=== PATIENT | female | born 1960 | race American Indian/Alaskan Native ===

== ENCOUNTER 2017-05-02 15:40 | Emergency (ER) | payer OTHER ==
[2017-05-02 15:42] VITALS: BP 115/64; PULSE 78; RESP 16; TEMP 98.8; O2SAT 98
--- NOTE | 2017-05-02 16:13 | ED PDOC ---
HPI: Eye Injury/Pain Time Seen by Provider: 05/02/17 15:53 Chief Complaint (Nursing): Eye Problem Chief Complaint (Provider): Right eye irritation History Per: Patient History/Exam Limitations: no limitations Onset/Duration Of Symptoms: Days (2) Additional Complaint(s): Patient is a 56 y/o female with no significant past medical history brought to the emergency department by EMS for swelling and redness to her right upper eyelid since last night. Reports that she was scratching the top of her right upper eyelid last night because it felt itchy. Then, after waking up this morning she found that the eyelid was swollen and red. Denies pain, discomfort, scleral redness, fever, shortness of breath, facial swelling, changes in vision , discharge, foreign body sensation, use of contact lens, injuries, or other complaints. Patient is also requesting refill for her Ventolin pump. PCP: none provided. Past Medical History Reviewed: Historical Data, Nursing Documentation, Vital Signs Vital Signs: Last Vital Signs Temp 98.8 F 05/02/17 15:40 Pulse 78 05/02/17 15:40 Resp 16 05/02/17 15:40 BP 115/64 05/02/17 15:40 Pulse Ox 98 05/02/17 15:40 - Medical History PMH: Anxiety, Asthma - Family History Family History: States: Unknown Family Hx - Immunization History Hx Tetanus Toxoid Vaccination: No Hx Influenza Vaccination: No Hx Pneumococcal Vaccination: No - Home Medications Home Medications: Ambulatory Orders Medication Instructions Recorded Albuterol Sulfate [Albuterol Hfa] 0.09 mg IH QID PRN #30 04/03/14 Methylprednisolone [Medrol Dose 4 mg PO DAILY #21 mg 04/03/14 Pack (21 tabs)] Albuterol Sulfate [Albuterol 3 ml IH Q6H PRN #30 lion 05/07/14 Sulfate 2.5mg/3 ml 0.083%] Alprazolam [Xanax] 0.25 mg PO DAILY PRN #5 tab 05/07/14 Prednisone 50 mg PO DAILY #4 tab 05/07/14 predniSONE 50 mg PO DAILY #4 tab 05/31/14 Nabumetone [Relafen] 500 mg PO BID #20 tab 09/20/14 Albuterol 0.083% [Albuterol 0.083% 2.5 mg IH Q6H #50 neb 07/20/15 Inhal Lion (2.5 mg/3 ml) UD] Naproxen [Naprosyn] 500 mg PO BID PRN #20 tablet 07/20/15 Nabumetone [Relafen] 500 mg PO BID #20 tab 08/08/15 traMADol [Ultram] 50 mg PO TID PRN #15 tab 08/08/15 Acetaminophen [Tylenol Extra 1,000 mg PO TID #20 tablet 11/30/15 Strength] Ibuprofen [Motrin] 600 mg PO TID PRN #30 tab 11/30/15 Albuterol 0.083% [Albuterol 3 ml IH Q4 #100 neb 05/02/17 Sulfate 3 Ml] Albuterol HFA [Ventolin HFA 90 2 puff IH [id number] #1 puff 05/02/17 mcg/actuation (8 g)] DiphenhydrAMINE [Benadryl] 25 mg PO TID #20 cap 05/02/17 - Allergies Allergies/Adverse Reactions: Allergies Allergy/AdvReac Type Severity Reaction Status Date / Time No Known Allergies Allergy Verified 08/08/15 14:44 Review of Systems ROS Statement: Except As Marked, All Systems Reviewed And Found Negative Constitutional: Negative for: Fever Eyes: Positive for: Eyelid Inflammation (right eyelid swelling and redness). Negative for: Pain, Vision Change, Conjunctivae Inflammation, Redness (scleral) , Other (discharge, foreign body sensation, trauma) ENT: Negative for: Other (facial swelling) Respiratory: Negative for: Shortness of Breath Physical Exam - Reviewed Nursing Documentation Reviewed: Yes Vital Signs Reviewed: Yes - Physical Exam Comments: GENERAL APPEARANCE: Patient is awake, alert, oriented x 3, in no acute distress. SKIN: Warm, dry; (-) cyanosis. HEENT: (-) facial swelling and erythema, (-) facial blisters. LIDS & LASHES: Edema and erythema to right upper eyelid PUPILS: Pupils equal and reactive. EOM's: Intact. LID EVERSION: (-) foreign body. CONJUNCTIVAE: (-) injection. CORNEA: No embedded foreign body noted (-) infiltrate. ANTERIOR CHAMBER: (-) foreign body, (-) tear in iris, (-) hyphema. CHEST AND RESPIRATORY: (-) accessory muscle use. Lungs: (-) rales, (-) rhonchi, (-) wheezes, (-) rub; breath sounds equal bilaterally. HEART AND CARDIOVASCULAR: (-) irregularity; (-) murmur, (-) gallop, (-) rub. - ECG O2 Sat by Pulse Oximetry: 98 (RA) Pulse Ox Interpretation: Normal Medical Decision Making Medical Decision Makin:00 Patient medicated with Benadryl by mouth and given prescription refill for her Ventolin and albuterol nebulizer. Patient is stable for discharge and diagnosed with having an allergic reaction, which was discussed with patient. Advised to follow up with primary care physician in 1-2 days without fail. Take Rx as directed. Return to the emergency room at any time for any new or worsening symptoms. Patient states she fully agrees with and understands discharge instructions. States that she agrees with the plan and disposition. Verbalized and repeated discharge instructions and plan. I have given the patient opportunity to ask any additional questions. ~ Scribe Attestation: Documented by Barbara Howell, acting as a scribe for ANGEL Bruner. Provider Scribe Attestation: All medical record entries made by the Scribe were at my direction and personally dictated by me. I have reviewed the chart and agree that the record accurately reflects my personal performance of the history, physical exam, medical decision making, and the department course for this patient. I have also personally directed, reviewed, and agree with the discharge instructions and disposition. Disposition - Clinical Impression Clinical Impression: Allergic reaction, Asthma Counseled Patient/Family Regarding: Diagnosis, Rx Given - Disposition Disposition: Routine/Home Disposition Time: 17:00 Condition: STABLE Additional Instructions: Thank you for letting us take care of you today. You were treated for allergic reaction, asthma. The emergency medical care you received today was directed at your acute symptoms. If you were prescribed any medication, please fill it and take as directed. It may take several days for your symptoms to resolve. Return to the Emergency Department if your symptoms worsen, do not improve, or if you have any other problems. Please contact your doctor in 2 days for re-evaluation and follow up. Bring any paperwork you were given at discharge with you along with any medications you are taking to your follow up visit. Our treatment cannot replace ongoing medical care by a primary care provider (PCP) outside of the emergency department. Thank you for allowing the [facility] team to be part of your care today. Prescriptions: Albuterol HFA [Ventolin HFA 90 mcg/actuation (8 g)] 2 puff IH [id number] #1 puff Albuterol 0.083% [Albuterol Sulfate 3 Ml] 3 ml IH Q4 #100 neb DiphenhydrAMINE [Benadryl] 25 mg PO TID #20 cap Instructions: Asthma (ED), General Allergic Reaction (ED) Forms: [employer] [employer] (Egyptian) Print Language: TURKMEN - PA / LIMO DRIVER / Resident Statement /DO has reviewed & agrees with the documentation as recorded.
== END 2017-05-02 16:54 | disposition home or self-care (01) ==
LOC: H.ER 15:40
DX: T78.40XA Allergy, unspecified, initial encounter (principal); J45.909 Unspecified asthma, uncomplicated; Z86.59 Personal history of other mental and behavioral disorders

== ENCOUNTER 2017-08-21 14:21 | Emergency (ER) | payer OTHER ==
[2017-08-21 14:28] VITALS: TEMP 98.1
[2017-08-21] MEDS ORDERED: Albuterol-Ipratrop 3 mg / 0.5 (3 ml) UD IH STA (14:56)
[2017-08-21] MEDS ORDERED: Albuterol-Ipratrop 3 mg / 0.5 (3 ml) UD INH STA (14:56)
[2017-08-21 15:09] LABS: BASO # 0.1 K/uL (0.0-0.2); BASO % 1.2 % (0.0-2.0); EOS # 0.1 K/uL (0.0-0.7); EOS % 2.3 % (0.0-4.0); HEMOGLOBIN 13.7 g/dL (12.0-16.0); LYMPH # 1.6 K/uL (1.0-4.3); MEAN CELL VOLUME 90.4 fl (81.0-99.0); MEAN CORPUSCULAR HEMOGLOBIN 30.8 pg (27.0-31.0); MEAN CORPUSCULAR HGB CONC 34.1 g/dL (33.0-37.0); MEAN PLATELET VOLUME 7.2 fl (7.2-11.7); MONO # 0.7 K/uL (0.0-0.8); MONO % 12.3 % (0.0-10.0); NEUT # 3.2 K/uL (1.8-7.0); NEUT % 56.2 % (50.0-75.0); NRBC % 0.1 % (0.0-0.0); RBC 4.45 Mil/uL (3.80-5.20); RED CELL DISTRIBUTION WIDTH 14.4 % (11.5-14.5); WHITE BLOOD COUNT 5.8 K/uL (4.8-10.8)
[2017-08-21] MEDS ORDERED: Albuterol-Ipratrop 3 mg / 0.5 (3 ml) UD ONE (15:09)
--- NOTE | 2017-08-21 15:09 | ED PDOC ---
HPI: SOB/CHF/COPD Time Seen by Provider: 08/21/17 14:35 Chief Complaint (Nursing): Shortness Of Breath Chief Complaint (Provider): shortness of breath History Per: Patient History/Exam Limitations: no limitations Onset/Duration Of Symptoms: Hrs (today) Current Symptoms Are (Timing): Still Present Current Respiratory Medications: Albuterol Associated Symptoms: Other (nasal congestion). denies: Fever, Chills, Chest Pain, Leg/Calf Pain, Dizziness, Tingling In Hands Or Face Additional Complaint(s): Tanika Morgan is a 56 year old female, with a past medical history of asthma, who presents to the emergency department via EMS complaining of shortness of breath onset today. Patient is also complaining of nasal congestion, and states her asthma might have been exacerbated by seasonal allergies. Patient reports a chronic bilateral knee pain and swelling that she has had for many months, the swelling is more so on the right than the left knee. Patient takes Motrin for the pain with relief but states she ran out. She denies any fever, chills, chest pain, vomit, diarrhea, abdominal pain, calf pain, numbness, weakness, tingling, headache or dizziness. No further medical complaints. PMD: None provided. Past Medical History Reviewed: Historical Data, Nursing Documentation, Vital Signs Vital Signs: Last Vital Signs Temp 98.1 F 08/21/17 14:24 Pulse 83 08/21/17 14:24 Resp 16 08/21/17 14:24 BP 111/52 L 08/21/17 14:24 Pulse Ox 100 08/21/17 15:22 - Medical History PMH: Anxiety, Asthma - Surgical History Surgical History: No Surg Hx - Family History Family History: States: Unknown Family Hx - Social History Current smoker - smoking cessation education provided: Yes (light smoker <10 cigarettes daily) Alcohol: Social Drugs: Cannabis - Immunization History Hx Tetanus Toxoid Vaccination: No Hx Influenza Vaccination: No Hx Pneumococcal Vaccination: No - Home Medications Home Medications: Ambulatory Orders Medication Instructions Recorded Albuterol Sulfate [Albuterol Hfa] 0.09 mg IH QID PRN #30 04/03/14 Methylprednisolone [Medrol Dose 4 mg PO DAILY #21 mg 04/03/14 Pack (21 tabs)] Albuterol Sulfate [Albuterol 3 ml IH Q6H PRN #30 gaby 05/07/14 Sulfate 2.5mg/3 ml 0.083%] Alprazolam [Xanax] 0.25 mg PO DAILY PRN #5 tab 05/07/14 Prednisone 50 mg PO DAILY #4 tab 05/07/14 predniSONE 50 mg PO DAILY #4 tab 05/31/14 Nabumetone [Relafen] 500 mg PO BID #20 tab 09/20/14 Albuterol 0.083% [Albuterol 0.083% 2.5 mg IH Q6H #50 neb 07/20/15 Inhal Gaby (2.5 mg/3 ml) UD] Naproxen [Naprosyn] 500 mg PO BID PRN #20 tablet 07/20/15 Nabumetone [Relafen] 500 mg PO BID #20 tab 08/08/15 traMADol [Ultram] 50 mg PO TID PRN #15 tab 08/08/15 Acetaminophen [Tylenol Extra 1,000 mg PO TID #20 tablet 11/30/15 Strength] Ibuprofen [Motrin] 600 mg PO TID PRN #30 tab 11/30/15 Albuterol 0.083% [Albuterol 3 ml IH Q4 #100 neb 05/02/17 Sulfate 3 Ml] Albuterol HFA [Ventolin HFA 90 2 puff IH [id number] #1 puff 05/02/17 mcg/actuation (8 g)] DiphenhydrAMINE [Benadryl] 25 mg PO TID #20 cap 05/02/17 Albuterol Sulfate [Proair Hfa] 0.09 mg IH Q6H PRN #2 inh 08/21/17 Ibuprofen [Motrin] 600 mg PO TID 7 Days tab 08/21/17 - Allergies Allergies/Adverse Reactions: Allergies Allergy/AdvReac Type Severity Reaction Status Date / Time No Known Allergies Allergy Verified 08/08/15 14:44 Review of Systems ROS Statement: Except As Marked, All Systems Reviewed And Found Negative Constitutional: Negative for: Fever, Chills ENT: Positive for: Nose Congestion Cardiovascular: Negative for: Chest Pain Respiratory: Positive for: Shortness of Breath Gastrointestinal: Negative for: Vomiting, Abdominal Pain, Diarrhea Musculoskeletal: Positive for: Leg Pain (chronic b/l knee) Neurological: Negative for: Weakness, Numbness (tingling), Headache, Dizziness Physical Exam - Reviewed Nursing Documentation Reviewed: Yes Vital Signs Reviewed: Yes - Physical Exam Appears: Positive for: Non-toxic Head Exam: Positive for: ATRAUMATIC, NORMOCEPHALIC Skin: Positive for: Normal Color, Warm, Dry Eye Exam: Positive for: Normal appearance, EOMI, PERRL ENT: Positive for: Nasal Congestion Neck: Positive for: Normal, Painless ROM, Supple Cardiovascular/Chest: Positive for: Regular Rate, Rhythm. Negative for: Murmur Respiratory: Positive for: Decreased Breath Sounds, Wheezing (mild expiratory) Pulses-Dorsalis Pedis (L): 2+ Pulses-Dorsalis Pedis (R): 2+ Gastrointestinal/Abdominal: Positive for: Normal Exam, Soft. Negative for: Tenderness Back: Positive for: Normal Inspection. Negative for: L CVA Tenderness, R CVA Tenderness, Vertebral Tenderness Extremity: Positive for: Normal ROM (full ROM at lower extremities), Swelling (b /l knee mild swelling. No erythema). Negative for: Tenderness, Pedal Edema, Calf Tenderness, Deformity Neurologic/Psych: Positive for: Alert, Oriented. Negative for: Motor/Sensory Deficits - Laboratory Results Result Diagrams: 08/21/17 15:00 08/21/17 15:00 Interpretation Of Abn Labs: no acute - ECG ECG: Positive for: Interpreted By Me, Viewed By Me ECG Rhythm: Positive for: Normal QRS, Normal ST Segment, Sinus Rhythm O2 Sat by Pulse Oximetry: 100 (RA) Pulse Ox Interpretation: Normal - Radiology X-Ray: Interpreted by Me, Viewed By Nj X-Ray Interpretation: No Acute Disease - Progress ED Course And Treament: 1634: Stable. AAOx3. Pain free. Breathing better. Fu with pcp. Medical Decision Making Medical Decision Making: Initial Impression: Asthma exacerbation, chronic knee pain Initial Plan: --EKG --B-Type Natriuretic Peptide --BMP --Troponin I --CBC w/ differential --Chest portable [RAD] --Duoneb 3 ml INH --SOLU-medrol 125 mg IVP --Toradol 15 mg IVP --Peak flow pre/post Tx --Reevaluation ----- Scribe Attestation: Documented by Sridhar Covarrubias, acting as a scribe for Maykel Ponce MD. Provider Scribe Attestation: All medical record entries made by the Scribe were at my direction and personally dictated by me. I have reviewed the chart and agree that the record accurately reflects my personal performance of the history, physical exam, medical decision making, and the department course for this patient. I have also personally directed, reviewed, and agree with the discharge instructions and disposition. Disposition - Clinical Impression Clinical Impression: Asthma - Patient ED Disposition Is Patient to be Admitted: No Counseled Patient/Family Regarding: Studies Performed, Diagnosis, Need For Followup, Rx Given - Disposition Referrals: [facility] [Outside] - 08/22/17 Disposition: Routine/Home Disposition Time: 16:35 Condition: STABLE Additional Instructions: Return if not better in 3 days. Prescriptions: Albuterol Sulfate [Proair Hfa] 0.09 mg IH Q6H PRN #2 inh PRN Reason: Wheezing Ibuprofen [Motrin] 600 mg PO TID 7 Days tab Instructions: Asthma in Adults
[2017-08-21 15:22] LABS: BLOOD UREA NITROGEN 17 mg/dl (7-17); CALCIUM 8.7 mg/dL (8.4-10.2); GFR AFRICAN-AMERICAN > 60; GFR NON-AFRICAN AMERICAN 58
[2017-08-21 15:34] LABS: B-TYPE NATRIURETIC PEPTIDE 37.1 pg/ml (0-900)
[2017-08-21 16:42] VITALS: BP 112/65; PULSE 71; RESP 19; O2SAT 99
--- NOTE | 2017-08-21 16:54 | RAD ---
HISTORY: Dyspnea. COMPARISON: 05/07/2014. FINDINGS: LUNGS: No active pulmonary disease. PLEURA: No significant pleural effusion identified, no pneumothorax apparent. CARDIOVASCULAR: No radiographic findings to suggest acute or significant cardiovascular disease. OSSEOUS STRUCTURES: No significant abnormalities. VISUALIZED UPPER ABDOMEN: Normal. OTHER FINDINGS: None. IMPRESSION: No active disease. No significant interval change compared to the prior examination(s). Concordant results with the preliminary interpretation rendered by the emergency department physician procedure.
--- NOTE | 2017-08-21 18:03 | CARD ---
APPROVED REPORT EKG Measurement Heart [id number] <Conclusion> Sinus bradycardia Anteroseptal infarct, age undetermined Abnormal ECG
== END 2017-08-21 16:45 | disposition home or self-care (01) ==
LOC: H.ER 14:21
DX: J45.909 Unspecified asthma, uncomplicated (principal); F17.210 Nicotine dependence, cigarettes, uncomplicated; M25.562 Pain in left knee; M25.561 Pain in right knee; G89.29 Other chronic pain; J44.9 Chronic obstructive pulmonary disease, unspecified
CPT/HCPCS: 71045; 80048; 81025; 83880; 84484; 85025; 93005; 96374; 96375; 99285; J1885; J2930

== ENCOUNTER 2018-04-10 11:39 | Emergency (ER) | payer OTHER ==
[2018-04-10] MEDS ORDERED: Albuterol-Ipratrop 3 mg / 0.5 (3 ml) UD ONE (14:09)
[2018-04-10] MEDS ORDERED: Albuterol-Ipratrop 3 mg / 0.5 (3 ml) UD INH STA (14:10)
--- NOTE | 2018-04-10 15:14 | RAD ---
Date of service: 04/10/2018 PROCEDURE: Right Knee Radiographs. HISTORY: acute R knee pain and swelling X 2 days COMPARISON: 07/20/2015 right knee radiographs FINDINGS: BONES: No acute fracture. Proliferative hypertrophic changes emanating from the femoral condyle and tibial plateau regions. JOINTS: Normal. No osteoarthritis. JOINT EFFUSION: Large suprapatellar joint effusion. OTHER FINDINGS: None. IMPRESSION: Large suprapatellar joint effusion. Similar joint effusion identified on the prior study. No acute osseous or articular abnormalities.
[2018-04-10] MEDS ORDERED: Albuterol-Ipratrop 3 mg / 0.5 (3 ml) UD INH SCH (16:00)
[2018-04-10 16:28] VITALS: BP 110/70; PULSE 68; RESP 16; TEMP 98.1; O2SAT 99
--- NOTE | 2018-04-10 16:31 | ED PDOC ---
Lower Extremity Pain/Injury Time Seen by Provider: 04/10/18 13:04 Chief Complaint (Nursing): Lower Extremity Problem/Injury Chief Complaint (Provider): Lower Extremity Problem/Injury History Per: Patient History/Exam Limitations: no limitations Onset/Duration Of Symptoms: Days Current Symptoms Are (Timing): Still Present Additional Complaint(s): Patient is a 57 y/o female with a PMHx of anxiety, asthma, and murmurs who presents to the ED for evaluation of right knee and swelling, onset a couple days ago. The patient reports she woke up with the swelling and pain which resulted in difficulty walking. Patient reports she can bare weight but it is painful. Patient denies sustaining trauma to the area. The patient states she has not taken any medication for her knee because she ran out of all of them. The patient also denies fever, chills, sweats, SOB, CP, dizziness, or palpitations. Of note, the patient was wheezing on her way to the ED and ran out of her inhaler in order to provide relief. Since arrival, however, patient has been breathing more easily. PCP: None Provided Past Medical History Reviewed: Historical Data, Nursing Documentation, Vital Signs Vital Signs: Last Vital Signs Temp 98.1 F 04/10/18 16:27 Pulse 68 04/10/18 16:27 Resp 16 04/10/18 16:27 BP 110/70 04/10/18 16:27 Pulse Ox 99 04/10/18 16:27 - Medical History PMH: Anxiety, Asthma Other PMH: Mumurs - Surgical History Surgical History: No Surg Hx - Family History Family History: States: Unknown Family Hx - Social History Current smoker - smoking cessation education provided: No Ex-Smoker (has not smoked in the last 12 months): Yes Alcohol: None Drugs: Cocaine - Immunization History Hx Tetanus Toxoid Vaccination: No Hx Influenza Vaccination: No Hx Pneumococcal Vaccination: No - Home Medications Home Medications: Ambulatory Orders Medication Instructions Recorded Albuterol Sulfate [Albuterol Hfa] 0.09 mg IH QID PRN #30 04/03/14 Methylprednisolone [Medrol Dose 4 mg PO DAILY #21 mg 04/03/14 Pack (21 tabs)] Albuterol Sulfate [Albuterol 3 ml IH Q6H PRN #30 gaby 05/07/14 Sulfate 2.5mg/3 ml 0.083%] Alprazolam [Xanax] 0.25 mg PO DAILY PRN #5 tab 05/07/14 Prednisone 50 mg PO DAILY #4 tab 05/07/14 predniSONE 50 mg PO DAILY #4 tab 05/31/14 Nabumetone [Relafen] 500 mg PO BID #20 tab 09/20/14 Albuterol 0.083% [Albuterol 0.083% 2.5 mg IH Q6H #50 neb 07/20/15 Inhal Gaby (2.5 mg/3 ml) UD] Naproxen [Naprosyn] 500 mg PO BID PRN #20 tablet 07/20/15 Nabumetone [Relafen] 500 mg PO BID #20 tab 08/08/15 traMADol [Ultram] 50 mg PO TID PRN #15 tab 08/08/15 Acetaminophen [Tylenol Extra 1,000 mg PO TID #20 tablet 11/30/15 Strength] Ibuprofen [Motrin] 600 mg PO TID PRN #30 tab 11/30/15 Albuterol 0.083% [Albuterol 3 ml IH Q4 #100 neb 05/02/17 Sulfate 3 Ml] Albuterol HFA [Ventolin HFA 90 2 puff IH [id number] #1 puff 05/02/17 mcg/actuation (8 g)] DiphenhydrAMINE [Benadryl] 25 mg PO TID #20 cap 05/02/17 Albuterol Sulfate [Proair Hfa] 0.09 mg IH Q6H PRN #2 inh 08/21/17 Ibuprofen [Motrin] 600 mg PO TID 7 Days tab 08/21/17 Acetaminophen [Tylenol 325mg tab] 650 mg PO Q6 PRN 7 Days tab 04/10/18 Albuterol HFA [Ventolin HFA 90 1 puff IH Q4 PRN #1 puff 04/10/18 mcg/actuation (8 g)] Ibuprofen [Motrin Tab] 600 mg PO Q6 PRN 7 Days tab 04/10/18 - Allergies Allergies/Adverse Reactions: Allergies Allergy/AdvReac Type Severity Reaction Status Date / Time No Known Allergies Allergy Verified 08/08/15 14:44 Review of Systems ROS Statement: Except As Marked, All Systems Reviewed And Found Negative Constitutional: Negative for: Fever, Chills, Sweats Cardiovascular: Negative for: Chest Pain, Palpitations Respiratory: Positive for: Wheezing. Negative for: Shortness of Breath Neurological: Positive for: Numbness (Bilateral lower extremity slightly worse on right), Other (Tingling on bilateral lower extremity slightly worse on right). Negative for: Dizziness Physical Exam - Reviewed Nursing Documentation Reviewed: Yes Vital Signs Reviewed: Yes - Physical Exam Appears: Positive for: Uncomfortable Head Exam: Positive for: ATRAUMATIC, NORMAL INSPECTION, NORMOCEPHALIC Skin: Positive for: Normal Color Eye Exam: Positive for: Normal appearance ENT: Positive for: Normal ENT Inspection Neck: Positive for: Normal Cardiovascular/Chest: Positive for: Murmur (2/6 of left sternal boarder) Respiratory: Positive for: Other (Poor Airflow). Negative for: Rales, Rhonchi, Wheezing Gastrointestinal/Abdominal: Positive for: Normal Exam Extremity: Positive for: Normal ROM (flexion and extension of hip, knee, and ankle), Swelling (Right super and posterior aspect of knee) Neurologic/Psych: Positive for: Alert, Oriented. Negative for: Motor/Sensory D eficits (Sensation Intact with Light Touch) - ECG O2 Sat by Pulse Oximetry: 99 (RA) Pulse Ox Interpretation: Normal Medical Decision Making Medical Decision Making: Time: 1344 Plan: Knee 3 Views RT [Duoneb 3 mg/05 mg (3 ml) UD] 3 ml INH [Duoneb 3 mg/05 mg (3 ml) UD] 3 ml INH Toradol 15 mg IM Scribe Attestation: Documented by Sidney Vega, acting as a scribe for Uzma ORTIZ. Provider Scribe Attestation: All medical record entries made by the Scribe were at my direction and personally dictated by me. I have reviewed the chart and agree that the record accurately reflects my personal performance of the history, physical exam, medical decision making, and the department course for this patient. I have also personally directed, reviewed, and agree with the discharge instructions and disposition. Disposition - Clinical Impression Clinical Impression: Knee effusion, right - Disposition Referrals: Logn Isabel MD [Staff Provider] - Jatinder Fagan MD [Medical Doctor] - Condition: STABLE Additional Instructions: F/u with orthopedist for further evaluation of Right knee effusion. Take Tylenol or Ibuprofen for pain. F/u with primary care doctor for further asthma care. Prescriptions: Acetaminophen [Tylenol 325mg tab] 650 mg PO Q6 PRN 7 Days tab PRN Reason: Pain, Moderate (4-7) Albuterol HFA [Ventolin HFA 90 mcg/actuation (8 g)] 1 puff IH Q4 PRN #1 puff PRN Reason: Wheezing Ibuprofen [Motrin Tab] 600 mg PO Q6 PRN 7 Days tab PRN Reason: Pain, Moderate (4-7) Forms: [employer] Connect (Qatari) Print Language: JORDANIAN
== END 2018-04-10 16:28 | disposition home or self-care (01) ==
LOC: H.ER 11:39
DX: M25.461 Effusion, right knee (principal); J45.909 Unspecified asthma, uncomplicated
CPT/HCPCS: 73562; 94640; 96372; 99283; J1885